=== PATIENT | male | born 2000 | race Two or more races ===

== ENCOUNTER 2023-02-23 21:22 | Emergency (ER) | payer OTHER ==
[~2023-02-23] VITALS: Ht 175.3 cm; Wt 58.1 kg
== END 2023-02-24 00:18 | disposition home or self-care (01) ==
LOC: ER 21:22
DX: J10.1 Influenza due to other identified influenza virus with other respiratory manifestations (principal); R53.81 Other malaise; Z20.822 Contact with and (suspected) exposure to COVID-19

== ENCOUNTER 2023-04-17 19:53 | Emergency (ER) | payer OTHER ==
[~2023-04-17] VITALS: Ht 175.3 cm; Wt 57.2 kg
[2023-04-18] MEDS ORDERED: DUI500 PO (00:14)
[2023-04-18] MEDS ORDERED: PEPCID20 MG PO (00:14)
== END 2023-04-18 00:23 | disposition home or self-care (01) ==
LOC: ER 19:53
PROVIDERS: General Practice
DX: N39.0 Urinary tract infection, site not specified (principal)
CPT/HCPCS: 36415; 96365; 99283; J3490

== ENCOUNTER → 2023-05-20 | Emergency (ER) | payer OTHER ==
[~2023-05-20] VITALS: Ht 177.8 cm; Wt 56.7 kg
[~2023-05-20] MED LIST: DUI500 PO; PEPCID20 MG PO
== END | disposition home or self-care (01) ==
LOC: ER 10:07
DX: L60.0 Ingrowing nail (principal); Z87.09 Personal history of other diseases of the respiratory system

== ENCOUNTER 2024-12-26 21:08 | Emergency (ER) | payer OTHER ==
[~2024-12-26] VITALS: Ht 175.3 cm; Wt 56.7 kg
[2024-12-26 21:41] VITALS: BP 113/66; O2SAT 98
[2024-12-27] MEDS ORDERED: TETRACAINE HCL 20 DR/ML DROPS OP STA (02:36)
== END 2024-12-27 02:54 | disposition home or self-care (01) ==
LOC: ER 21:08
DX: H10.9 Unspecified conjunctivitis (principal)

== ENCOUNTER 2024-12-31 08:57 | Emergency (ER) | payer OTHER ==
[~2024-12-31] VITALS: Ht 175.3 cm; Wt 58.1 kg
[2024-12-31 10:49] LABS: BASO % 0.4 % (0.1-1.2); EOS # 0.03 (0.04-0.54); EOS % 0.4 % (0.7-7.0); HEMATOCRIT 42.5 % (40.1-51.0); HEMOGLOBIN 14.5 g/dL (13.7-17.5); LYMPH # 0.88 (1.18-3.74); LYMPH % 10.3 % (19.3-53.1); MEAN CORPUSCULAR HEMOGLOBIN 28.6 pg (25.6-32.2); MONO # 0.61 (0.24-0.82); MONO % 7.1 % (4.7-12.5); NEUT # 6.96 (1.56-6.13); NEUT % 81.4 % (34.0-71.1); PLATELET COUNT 172 K/uL (163-369); RED BLOOD COUNT 5.07 M/uL (4.63-6.08); RED CELL DISTRIBUTION WIDTH 12.5 % (11.6-14.4)
[2024-12-31 11:12] LABS: CALCIUM 9.2 mg/dL (8.5-10.1); CREATININE SERUM 0.77 mg/dL (0.70-1.30); GFR 125.2; POTASSIUM 4.08 mEq/L (3.5-5.1)
[2024-12-31 11:28] LABS: URINE APPEARANCE Clear; URINE BILIRRUBIN Negative (NEGATIVE); URINE BLOOD Small; URINE COLOR Yellow; URINE GLUCOSE Negative (NEGATIVE); URINE KETONE Trace (NEGATIVE); URINE LEUKOCYTE Trace; URINE NITRATE Negative; URINE PROTEIN Trace (NEGATIVE)
[2024-12-31 11:30] LABS: URINE BACTERIA 6.1 uL (0.0-1933); URINE EPITHELIAL CELLS 3.4 uL (0.0-38.8); URINE WBC 12.6 uL (0.0-23.2)
[2024-12-31 11:48] LABS: URINE CAST 0.29 uL (0.0-1.40)
== END 2024-12-31 12:12 | disposition home or self-care (01) ==
LOC: ER 09:05
PROVIDERS: General Practice
DX: R19.7 Diarrhea, unspecified (principal)